=== PATIENT | male | born 1980 | race Caucasian/White ===

== ENCOUNTER 2023-04-26 20:00 | Emergency (ER) | payer SELFPAY ==
[~2023-04-26] VITALS: Ht 170.2 cm; Wt 55.6 kg
[2023-04-26 20:26] VITALS: O2SAT 98
[2023-04-27] MEDS ORDERED: TETRACAINE 0.5% OPHTH DROPS 4ML RIGHTEYE ONE (01:30)
[2023-04-27] MEDS ORDERED: FLUORESCEIN SODIUM 1MG/STRIP RIGHTEYE ONE (01:30)
[2023-04-27 02:01] LABS: EOSINOPHILS % 5.6 % (0.0-5.0); HEMATOCRIT. 40.6 % (42.0-52.0); HEMOGLOBIN. 14.1 g/dL (14.0-18.0); LYMPHOCYTES % 25.3 % (20.0-50.0); MEAN CORPUSCULAR HEMOGLOBIN 34.5 pg (28.0-32.0); MEAN CORPUSCULAR HGB CONC 34.8 g/dL (31.0-37.0); MEAN CORPUSCULAR VOLUME 99.2 fL (80.0-94.0); MEAN PLATELET VOLUME 8.1 fl (7.4-10.4); MONOCYTES % 9.5 % (2.0-8.0); NEUTROPHILS % 58.6 % (40.0-76.0); PLATELET 214 x1000/uL (130-400); RED BLOOD CELL COUNT 4.09 mill/uL (4.7-6.1); RED CELL DISTRIBUTION WIDTH 12.3 % (11.6-14.6); WHITE BLOOD COUNT 6.7 x1000/uL (4.5-11.0)
[2023-04-27 02:09] LABS: ALANINE AMINOTRANSFERASE 18 IU/L (10-49); ALBUMIN 4.6 g/dL (3.2-4.8); ASPARTATE AMINOTRANSFERASE 29 IU/L (<34); BILIRUBIN TOTAL 0.5 mg/dL (0.1-1.0); CALCIUM 9.4 mg/dL (8.7-10.4); CARBON DIOXIDE 20 mEq/L (21-32); CHLORIDE 101 mEq/L (98-107); CREATININE 0.6 mg/dL (0.6-1.3); GLUCOSE 94 mg/dL (70-105); POTASSIUM 4.1 mEq/L (3.5-5.1); PROTEIN TOTAL 7.9 g/dL (6.0-8.3); SODIUM 131 mEq/L (136-145)
[2023-04-27 02:11] LABS: UREA NITROGEN BLOOD < 5 mg/dL (9-23)
[2023-04-27] MEDS ORDERED: ACETAZOLAMIDE 500MG ER CAPSULE PO ONE (03:30)
[2023-04-27] MEDS ORDERED: BRIMONIDINE 0.2% OPHTH DROPS 5ML RIGHTEYE ONE (03:30)
[2023-04-27] MEDS ORDERED: ACYCLOVIR INJ 500 MG in DEXT 5% WATER 100 ML IV SCH (03:30)
[2023-04-27] MEDS ORDERED: TIMOLOL MALEATE 0.5% OPHTH DROPS 5ML RIGHTEYE SCH (03:30)
[2023-04-27] MEDS ORDERED: IOHEXOL-300 100 ML BOTTLE ONE (05:21)
[2023-04-27 05:43] VITALS: BP 135/90; PULSE 82; RESP 16; TEMP 98.4
== END 2023-04-27 06:20 | disposition short-term general hospital (02) ==
LOC: ER 20:13
DX: H57.11 Ocular pain, right eye (principal); J45.909 Unspecified asthma, uncomplicated; I10 Essential (primary) hypertension
CPT/HCPCS: 99285; 96365; 70481; 80053; 85025; 36415; Q9967; J0133; J7060